=== PATIENT | female | born 1955 | race Caucasian/White ===

== ENCOUNTER 2024-06-12 18:36 | Emergency (ER) | payer MEDICARE, OTHER ==
[~2024-06-12] VITALS: Ht 162.6 cm; Wt 100.0 kg
[~2024-06-12 18:36] MED LIST: COZAAR25 MG PO
[2024-06-12] MEDS ORDERED: SODIUM CHLORIDE 0.9% 1,000 ML IV SCH ×2 (20:30→22:30)
[2024-06-12] MEDS ORDERED: diphenhydrAMINE HCL 50 MG/ML VIAL IV ONE (20:30)
[2024-06-12] MEDS ORDERED: METOCLOPRAMIDE HCL 10 MG/2 ML SDV IV ONE (20:30)
[2024-06-12] MEDS ORDERED: KETOROLAC TROMETHAMINE 30 MG/ML VIAL IV ONE (20:30)
[2024-06-12 20:35] LABS: BASOPHILS 0.4 % (0-2); EOSINOPHILS 3.3 % (0-6); HEMATOCRIT 40.7 % (35.0-50.0); HEMOGLOBIN 13.8 g/dL (12.0-18.0); LYMPHOCYTES 13.8 % (24-44); MCH 30.3 (27-36); MCHC 33.9 g/dl (30-36); MCV 89.4 fl (81-99); MONOCYTES 4.9 % (0-12); NEUTROPHILS 77.6 % (39-80); PLATELET COUNT 225 K/uL (140-440); RBC 4.55 M/ul (4.3-5.7); RDW 13.4 (10.5-15.0)
[2024-06-12 20:51] LABS: ALBUMIN 3.5 g/dL (3.4-5.0); ALBUMIN/GLOBULIN RATIO 0.92 (1.1-2.4); BILIRUBIN, TOTAL 0.3 mg/dL (0.2-1.0); BUN/CREATININE RATIO 16.45 (6.0-28.6); CREATININE, SERUM 0.79 mg/dL (0.55-1.02); PROTEIN, TOTAL 7.3 g/dL (6.4-8.2)
[2024-06-12] MEDS ORDERED: propofoL 100 ML IV ONE (21:48)
[2024-06-12] MEDS ORDERED: propofoL 100 ML IV SCH (22:00)
[2024-06-12] MEDS ORDERED: FENTANYL CITRATE-0.9 % NACL/PF 100 ML IV SCH (22:15)
[2024-06-12] MEDS ORDERED: MANNITOL 20% 100 GM/500 ML BAG IV ONE (22:30)
[2024-06-12] MEDS ORDERED: levETIRAcetam 500 MG/5 ML VIAL IV ONE (22:30)
[2024-06-12] MEDS ORDERED: LIDOCAINE 2% VISCOUS 6 ML SYR TOP ONE (22:30)
[2024-06-12 23:35] VITALS: BP 172/65
[2024-06-12] MEDS ORDERED: SUCCINYLCHOLINE CHLORIDE 20 MG/ML MDV IV ONE (23:45)
[2024-06-12] MEDS ORDERED: ETOMIDATE 40 MG/20 ML VIAL IV ONE (23:45)
== END 2024-06-13 00:02 | disposition short-term general hospital (02) ==
LOC: ED 18:36
PROVIDERS: Emergency Medicine
DX: I62.9 Nontraumatic intracranial hemorrhage, unspecified (principal); I10 Essential (primary) hypertension; Z79.899 Other long term (current) drug therapy; Z88.2 Allergy status to sulfonamides
CPT/HCPCS: 31500; 31720; 36415; 51702; 70450; 70496; 71045; 80053; 85025; 94002; 94799; 99291; J0330; J1200; J1885; J1953; J2704; J2765; J3010; J7030; Q9967

== ENCOUNTER 2024-10-02 00:01 | Emergency (ER) | payer MEDICARE, OTHER ==
[~2024-10-02] VITALS: Ht 162.6 cm; Wt 100.0 kg
[2024-10-02 00:30] LABS: BASOPHILS 0.6 % (0.1-1.2); EOSINOPHILS 4.2 % (0.7-5.8); LYMPHOCYTES 26.2 % (19.3-51.7); MCH 29.5 PG (25.6-32.2); MCHC 33.5 g/dL (32.2-35.5); MCV 88.1 fL (79.4-94.8); MONOCYTES 8.4 % (4.7-12.5); NEUTROPHILS 60.2 % (34.0-71.1); RBC 4.47 M/uL (3.93-5.22)
[2024-10-02 00:51] LABS: ALT (SGPT) 54.0 U/L (14-59); AST (SGOT) 45.0 U/L (15-37); GLOMERULAR FILTRATION RATE,EST 66.0 mL/min (>60); PROTEIN, TOTAL 7.3 g/dL (6.4-8.2); UREA NITROGEN 15.0 mg/dL (7-18)
[2024-10-02 02:33] LABS: BLOOD/HGB, URINE NEGATIVE (Negative); KETONE, URINE NEGATIVE (Negative); LEUK ESTERASE, URINE TRACE (negative); NITRITE, URINE NEGATIVE (negative)
[2024-10-02 02:41] LABS: BACTERIA, URINE 1+ /hpf (negative); CASTS, URINE NONE SEEN \\lpf; CRYSTALS, URINE NONE SEEN (0-1+); EPITHELIAL CELLS, URINE SQUAMOUS 2+ /lpf (0-1+)
[2024-10-02 02:42] LABS: REFLEX CULTURE, URINE No (No)
[2024-10-02] MEDS ORDERED: MACROBID 100 M100 MG PO (02:47)
[2024-10-02 02:56] VITALS: BP 121/69
[2024-10-02] MEDS ORDERED: NITROFURANTOIN MONOHYD MACROCR 100 MG HOME.PACK PO ONE (03:00)
--- NOTE | 2024-10-03 17:49 | EKG ---
[facility] [address] [facility] [place], [place] [address] Signed Normal sinus rhythm Normal ECG No previous ECGs available Confirmed by Miah Mccray DO ([id number]) on 10/03/2024 5:49:21 PM Electronically Signed By: MIAH MCCRAY DO 10/03/24 1749 PATIENT NAME: JOSE ELIAS HARMAN Electrocardiogram DATE OF : 57 PHYSICIAN: MIAH MCCRAY DO REPORT #: [id number] REPORT IS CONFIDENTIAL AND NOT TO BE RELEASED WITHOUT AUTHORIZATION
== END 2024-10-02 02:56 | disposition home or self-care (01) ==
LOC: ED 00:01
PROVIDERS: Family Medicine
DX: N39.0 Urinary tract infection, site not specified (principal); R42 Dizziness and giddiness; I10 Essential (primary) hypertension; Z86.73 Personal history of transient ischemic attack (TIA), and cerebral infarction without residual deficits; Z88.2 Allergy status to sulfonamides; Z79.899 Other long term (current) drug therapy
CPT/HCPCS: 36415; 70450; 80053; 81001; 84484; 85025; 93005; 93010; 99284